=== PATIENT | female | born 1975 | race Caucasian/White ===

== ENCOUNTER 2017-12-15 19:23 | Emergency (ER) | payer OTHER ==
[2017-12-15 19:28] VITALS: BP 133/99; PULSE 96; TEMP 97.8; BMI 34.7
--- NOTE | 2017-12-15 19:33 | PDOC ---
Rapid Medical Evaluation Time Seen by Provider: 12/15/17 19:28 Medical Evaluation: Allergies Allergy/AdvReac Type Severity Reaction Status Date / Time No Known Allergies Allergy Verified 12/08/15 15:54 Vital Signs Temp Pulse Resp BP Pulse Ox 97.8 F 96 H 18 133/99 98 12/15/17 19:25 12/15/17 19:25 12/15/17 19:25 12/15/17 19:25 12/15/17 19:25 12/15/17 19:28 I have performed a brief in-person evaluation of this patient. The patient presents with a chief complaint of: Pain to lower back that started today, woke up with pain. Radiates to "butt cheeks with stabbing pain to R side." Denies loss of bladder function. Patient reports sneezing and soiling pants with "#2" and it was kind of mucous-y." Patient ambulatory. LMP - unknown, denies chance of . Denies hx of trauma. BUTTON SEWER HAND referenced, no findings. Pertinent physical exam findings: ambulatory, tenderness to b/l paravertebral muscles to lumbar spine, patient appears uncomfortable I have ordered the following: urine, pain meds The patient will proceed to the ED for further evaluation. Discharge Disposition - Diagnosis Low back pain - Referrals Referrals: Lela Araujo MD [Primary Care Provider] - - Patient Instructions - Post Discharge Activity
[2017-12-15] MEDS ORDERED: KETOROLAC TROMETHAMINE 60 MG/2 ML VIAL IM ONE (19:35)
--- NOTE | 2017-12-15 20:01 | PDOC ---
History of Present Illness - General Chief Complaint: Pain Stated Complaint: LOWER BACK PAIN Time Seen by Provider: 12/15/17 19:28 - History of Present Illness Initial Comments: 12/15/17 20:00 42 yo F with h/o chronic back pain who p/w lower back pain. Patient reports acute onset of pressure type lower back pain this AM upon waking up. Pain radiates to BL posterior thighs. Pain worse with movement and ambulation. Denies trauma to back, back surgery, heavy lifting, repetitive movement. Patient denies N/V, F/C, CP, SOB, urinary complaints, abdominal pain, diarrhea, constipation, perianal parasthesia, lightheadedness, weakness, sensory changes. PMHx: as noted above. ROS: as noted SHx: 1/2 PPD 30 years tobacco use. Allergies: NKDA Past History - Past Medical History Allergies/Adverse Reactions: Allergies Allergy/AdvReac Type Severity Reaction Status Date / Time No Known Allergies Allergy Verified 12/15/17 19:28 Home Medications: Ambulatory Orders NK [No Known Home Medication] 12/08/15 Anemia: No Asthma: No Cancer: No COPD: No - Surgical History Abdominal Surgery: No Appendectomy: No Cardiac Surgery: No - Suicide/Smoking/Psychosocial Hx Smoking Status: Yes Smoking History: Current every day smoker Number of Cigarettes Smoked Daily: 10 Information on smoking cessation initiated: Yes 'Breaking Loose' booklet given: 11/29/13 Hx Alcohol Use: No Drug/Substance Use Hx: No Substance Use Type: None Review of Systems - Review of Systems Comments:: 12/15/17 20:00 GENERAL/CONSTITUTIONAL: No fever or chills. No weakness. HEAD, EYES, EARS, NOSE AND THROAT: No change in vision. No ear pain or discharge. No sore throat. CARDIOVASCULAR: No chest pain or shortness of breath RESPIRATORY: No cough, wheezing, or hemoptysis. GASTROINTESTINAL: No nausea, vomiting, diarrhea or constipation. GENITOURINARY: No dysuria, frequency, or change in urination. MUSCULOSKELETAL: + Back pain. No joint or muscle swelling or pain. No neck . SKIN: No rash NEUROLOGIC: No headache, vertigo, loss of consciousness, or change in strength/ sensation. ENDOCRINE: No increased thirst. No abnormal weight change HEMATOLOGIC/LYMPHATIC: No anemia, easy bleeding, or history of blood clots. ALLERGIC/IMMUNOLOGIC: No hives or skin allergy. *Physical Exam - Vital Signs Last Vital Signs Temp Pulse Resp BP Pulse Ox 97.8 F 96 H 18 133/99 98 12/15/17 19:25 12/15/17 19:25 12/15/17 19:25 12/15/17 19:25 12/15/17 19:25 - Physical Exam Comments: 12/15/17 20:00 GENERAL: Awake, alert, and fully oriented, in no acute distress HEAD: No signs of trauma, normocephalic, atraumatic EYES: PERRLA, EOMI, sclera anicteric, conjunctiva clear ENT: Hearing grossly normal, nares patent, oropharynx clear without exudates. Moist mucosa NECK: Normal ROM, supple, no lymphadenopathy, JVD, or masses LUNGS: No distress, speaks full sentences, clear to auscultation bilaterally HEART: Regular rate and rhythm, normal S1 and S2, no murmurs, rubs or gallops, peripheral pulses normal and equal bilaterally. ABDOMEN: Soft, nontender, normoactive bowel sounds. No guarding, no rebound. No masses EXTREMITIES : Normal inspection, Normal range of motion, no edema. No clubbing or cyanosis. Back: + BL Paraspinal lumbar ttp. Absent stepoff, bony deformity, or overlying skin change.+ straight raise leg test BL. NEUROLOGICAL: Cranial nerves II through XII grossly intact. Normal speech, normal gait, no focal sensorimotor deficits SKIN: Warm, Dry, normal turgor, no rashes or lesions noted ] Medical Decision Making - Medical Decision Making 12/15/17 20:32 42 yo F with h/o chronic back pain who p/w lower back pain. VSS, AF, + BL Lumbar Paraspinal ttp. Absent alarm findings. Low suspicion cauda equina, spinal stenosis, epidural abscess, pyelonephritis, AAA, disc herniation. Pain likely 2/2 lumbrosacral strain/sprain. Patient arriving from [facility]. Pending Lumbar CT W/O CON. Received Toradol, Oxycodone. Ed Course: 12/15/17 22:27 Pt. Eloped *DC/Admit/Observation/Transfer Diagnosis at time of Disposition: Low back pain - Discharge Dispostion Disposition: ELOPED - Referrals Referrals: Thalappillil,Lela, MD [Primary Care Provider] - - Patient Instructions Additional Instructions: Please return to the emergency department with any new or worsening symptoms or concerns. Please follow up with your primary care physician within 72 hours. - Post Discharge Activity - Attestations Physician Attestion: 12/15/17 20:00 I attest to the information provided in this note.
== END 2017-12-15 21:50 | disposition left against medical advice (07) ==
LOC: JER 19:23
DX: M54.5 Low back pain (principal)
CPT/HCPCS: 99281-25